=== PATIENT | female | born 1990 | race Caucasian/White ===

== ENCOUNTER 2020-12-30 09:49 | Emergency (ER) | payer OTHER ==
[~2020-12-30] VITALS: Ht 165.1 cm; Wt 54.4 kg
[2020-12-30] MEDS ORDERED: KETO10TA2 PO (13:55)
[2020-12-30] MEDS ORDERED: NASAL MIST126 ML (16:36)
== END 2020-12-30 14:01 | disposition home or self-care (01) ==
LOC: ER 09:49
DX: R10.11 Right upper quadrant pain (principal)